=== PATIENT | male | born 1965 | race Caucasian/White ===

== ENCOUNTER 2018-07-26 05:59 | Day surgery (SDC) | payer BC ==
[2018-07-23 11:40] VITALS: BMI 25.1
[2018-07-26] MEDS ORDERED: Sodium Chloride 0.9% 10 ML ONE (06:29)
[2018-07-26] MEDS ORDERED: CEFAZOLIN/Water 2 GM/20 ML SYRINGE ONE (06:41)
[2018-07-26 07:00] LABS: #Eosinphils 0.1 thou/uL (0.0-0.7); #Lymphocytes 1.3 thou/uL (1.20-3.40); #Monocytes 0.3 thou/uL (0.11-0.59); %Basophils 0.7 % (0.0-1.0); %Lymphocytes 35.1 % (21.0-51.0); %Monocytes 8.6 % (0.0-10.0); %Neutrophils 52.6 % (42.0-75.0); Hemoglobin 14.3 g/dL (14.0-18.0); Mean Corpuscular HGB CONC 34.1 g/dL (32.0-36.0); Mean Corpuscular Hemoglobin 28.8 pg (27.0-31.0); Mean Corpuscular Volume 84.3 fL (78.0-98.0); Mean Platelet Volume 7.3 fL (7.4-10.4); Platelet Count 219 thou/uL (130-400); RBC Distribution Width 12.2 % (11.5-14.5); Red Blood Cell (RBC) Count 4.96 mill/uL (4.70-6.10); White Blood Cell (WBC) Count 3.8 thou/uL (4.8-10.8)
[2018-07-26] MEDS ORDERED: Midazolam HCl 2 mg/2 ml Vial ONE (07:06)
[2018-07-26 07:07] LABS: Anion Gap 7 mmol/L (10-20); BUN (Urea Nitrogen) 21 mg/dL (8.4-25.7); Calc. Creatinine Clearance 90 mL/min (70-130); Calcium 8.7 mg/dL (7.8-10.44); Carbon Dioxide 29 mmol/L (22-29); Chloride 107 mmol/L (98-107); Estimated GFR-MDRD 71; Glucose 92 mg/dL (70-105); Potassium 3.9 mmol/L (3.5-5.1); Sodium 139 mmol/L (136-145)
[2018-07-26] MEDS ORDERED: Fentanyl 100 MCG/2 ML VIAL ONE ×3 (07:17→09:09)
--- NOTE | 2018-07-26 08:47 | OP ---
DATE OF PROCEDURE: 07/26/2018 SURGEON: Anthony Capellan M.D. [employer] TECHNICIAN: Kelly Carlos PA-C. PROCEDURES PERFORMED: Left L5-S1 laminectomy, facetectomy, foraminotomy, interbody arthrodesis, post erolateral arthrodesis, pedicle screw instrumentation, demineralized bone matrix, local morselized au tograft. PROCEDURE IN DETAIL: The patient was brought to the operating room and intubated. He was rolled in the prone position on gel-filled chest rolls. Incision was made exposing L5 and S1 and our level was confirmed by x-ray. We performed a left L5-S1 laminectomy, facetectomy, and foraminotomy, identifie d the left L5 and left S1 nerve root and completely decompressed these. We then explored the L5-S1 d isc and found to be heavily calcified. We removed any remaining disk material for the purpose of art hrodesis, but there was very little of this. There was no space to place an intravertebral device. We next placed the pedicle screws at left L5 and left S1 using lateral fluoroscopic guidance. A barak was secured between the screws, connected by nuts which were final tightened. The wound was then ext ensively irrigated, immaculate hemostasis was secured. A combination of demineralized bone matrix an d local morselized autograft was laid over the right laminar and posterolateral surfaces for the purp ose of arthrodesis. Vancomycin powder was applied and the wound was closed in anatomic layers.
[2018-07-26] MEDS ORDERED: Metoclopramide HCl 10 MG/2 ML VIAL ONE (11:30)
[2018-07-26] MEDS ORDERED: PROPOFOL 200 MG/20 ML VIAL ONE (11:30)
[2018-07-26] MEDS ORDERED: Lidocaine 1% PF 5 ML VIAL ONE (11:30)
[2018-07-26] MEDS ORDERED: Dexamethasone 20 MG/5 ML VIAL ONE (11:30)
[2018-07-26] MEDS ORDERED: Glycopyrrolate 0.2 MG/ML 5 ML SYRINGE ONE (11:30)
[2018-07-26] MEDS ORDERED: Ondansetron HCl/PF 4 MG/2 ML Vial ONE (11:30)
== END 2018-07-26 11:25 | disposition home or self-care (01) ==
LOC: SDC 05:59
PROVIDERS: ATTEND Neurological Surgery
PROC: 0SG007J Fusion of Lumbar Vertebral Joint with Autologous Tissue Substitute, Posterior Approach, Anterior Column, Open Approach (ICD-10-PCS; principal; 2018-07-26)
DX: M51.16 Intervertebral disc disorders with radiculopathy, lumbar region (principal); M51.37 Other intervertebral disc degeneration, lumbosacral region; Z88.2 Allergy status to sulfonamides
CPT/HCPCS: 36415; 76001; 80048; 85025; 96374; A4216; C1713; C1768; J0131; J1100; J2001; J2250; J2405; J2704; J2765; J3010; J3370; J3490

== ENCOUNTER 2018-08-10 15:40 | Outpatient (CLI) | payer BC ==
--- NOTE | 2018-08-10 18:01 | RAD ---
LUMBAR SPINE 2 VIEWS: History Low back pain. Status post surgery 2 weeks ago. COMPARISON: None. FINDINGS: Five lumbar-type vertebral bodies. Unilateral left-sided transpedicular screw at L5 and S1. No martha hardware lucency. No spondylolisthesis or spondylolysis. Disk space heights are preserved. No evid ence of fracture. IMPRESSION: Uncomplicated lumbosacral fusion. POS: [facility]
== END 2018-08-10 15:41 | disposition home or self-care (01) ==
LOC: TBSIIMAG 15:40
PROVIDERS: ATTEND Neurological Surgery
DX: M54.9 Dorsalgia, unspecified (principal); Z98.1 Arthrodesis status
CPT/HCPCS: 72100

== ENCOUNTER 2018-09-21 15:42 | Outpatient (CLI) | payer BC ==
--- NOTE | 2018-09-21 17:07 | RAD ---
LUMBAR SPINE TWO VIEWS: 09/21/18 HISTORY: 53-year-old male with history of M51.36, followup surgery. COMPARISON: 08/10/18. FINDINGS: Left sided pedicle screws at L5-S1. The disc spaces are adequately preserved. No fracture or dislocat ion or significant malalignment. IMPRESSION: Stable postoperative changes on the left side at L5-S1. POS: [facility]
== END 2018-09-21 15:43 | disposition home or self-care (01) ==
LOC: TBSIIMAG 15:42
PROVIDERS: ATTEND Neurological Surgery
DX: M51.36 Other intervertebral disc degeneration, lumbar region (principal); Z98.890 Other specified postprocedural states
CPT/HCPCS: 72100